=== PATIENT | male | born 1960 | race Caucasian/White ===

== ENCOUNTER 2019-01-24 13:22 | Inpatient (IN) | payer BC, OTHER ==
--- NOTE | 2019-01-24 13:38 | PDOC ---
History of Present Illness - General Chief Complaint: Palpitations Stated Complaint: SENT BY PCP Time Seen by Provider: 01/24/19 13:37 History Source: Patient Exam Limitations: No Limitations - History of Present Illness Initial Comments: 01/24/19 13:48 Zuhair Franco is a 58yM w PMHx HTN and gout presenting w irregular HR. Last night while laying in bed reported new onset jitteriness that kept him up at night. Associated heart racing. Did not take any meds. No chest pain/tightness/SOB. Endorses increased work-related stressors. Went to Dr Bell's office this morning, diagnosed w a fib w RVR, sent here for further management. 1st time diagnosed. Denies fever, headache, nausea/vomiting, AB pain, urinary/bowel mvmt changes, or edema. Facial redness is baseline Dr Nikhil Mccray glove pairer 01/24/19 13:56 Past History - Past Medical History Allergies/Adverse Reactions: Allergies Allergy/AdvReac Type Severity Reaction Status Date / Time khanna Allergy Verified 01/24/19 15:25 CHERRIES Allergy Unknown Uncoded 01/24/19 15:25 Home Medications: Ambulatory Orders Allopurinol [Zyloprim -] 100 mg PO DAILY 01/24/19 Carvedilol [Coreg -] 25 mg PO BID 01/24/19 Lisinopril [Prinivil] 20 mg PO DAILY 01/24/19 [place]-3/Dha/Epa/Fish Oil [Fish Oil 1,000 mg Softgel] 1 each PO DAILY 01/24/19 metFORMIN HCL [Metformin HCl] 500 mg PO BID 01/24/19 COPD: No HTN: Yes - Suicide/Smoking/Psychosocial Hx Smoking Status: No Smoking History: Never smoked Number of Cigarettes Smoked Daily: 0 Hx Alcohol Use: Yes Drug/Substance Use Hx: No Review of Systems - Review of Systems Constitutional: No: Chills, Fever, Weakness HEENTM: No: Eye Pain, Nose Pain, Throat Pain, Mouth Pain Respiratory: No: Cough, Shortness of Breath Cardiac (ROS): Yes: Irregular Heart Rate, Palpitations. No: Chest Pain, Edema, Syncope, Chest Tightness ABD/GI: No: Abdominal Distended, Constipated, Diarrhea, Nausea, Vomiting : No: Burning, Dysuria, Discharge, Flank Pain, Hematuria, Incontinence Musculoskeletal: No: Back Pain, Joint Pain, Muscle Pain, Muscle Weakness Integumentary: No: Bruising, Change in Color, Erythema, Flushing, Lesions Neurological: No: Headache, Numbness, Seizure, Tingling, Tremors Psychiatric: Yes: Stressors. No: Anxiety, Depression Endocrine: No: Excessive Sweating, Flushing, Intolerance to Cold, Intolerance to Heat Hematologic/Lymphatic: No: Anemia, Blood Clots, Easy Bleeding *Physical Exam - Vital Signs Last Vital Signs Temp Pulse Resp BP Pulse Ox 98.3 F 108 H 16 118/91 98 01/24/19 13:28 01/24/19 13:28 01/24/19 13:28 01/24/19 13:28 01/24/19 13:28 - Physical Exam General Appearance: Yes: Nourished, Appropriately Dressed. No: Apparent Distress HEENT: positive: EOMI, KRISTIN, Normal Voice, Hearing Grossly Normal, Other ( facial flushing). negative: Pale Conjunctivae, Scleral Icterus (R), Scleral Icterus (L), Rhinorrhea, Sinus Tenderness Respiratory/Chest: positive: Lungs Clear, Normal Breath Sounds. negative: Chest Tender, Respiratory Distress, Accessory Muscle Use, Crackles, Rales, Rhonchi, Stridor, Wheezing Cardiovascular: positive: S1, S2, Tachycardia, Irregularly Irregular. negative : Edema, Murmur Extremity: positive: Normal Capillary Refill Integumentary: positive: Normal Color Neurologic: positive: Fully Oriented, Alert, Normal Mood/Affect, Normal Response , Responsive. negative: Sensory Deficit, Confused, Disoriented ED Treatment Course - LABORATORY CBC & Chemistry Diagram: 01/24/19 14:22 01/24/19 14:22 Medical Decision Making - Medical Decision Making 01/24/19 13:52 CBC CMP trop TSH CXR EKG EKG shows a fib w RVR, HR 122. HR in 130s Given 10 IV, 30 PO diltiazem w no change in HR. Given another 10 IV diltiazem slowed HR down to 100-110. Given 100 lovenox anticoagulation CXR, CBC, CMP normal, trop negative Zuhair Franco is a 58yM w PMHx HTN and gout presenting w irregular HR due to atrial fibrillation with RVR as shown on EKG. HR in 130s. Given 10 IV, 30 PO diltiazem w no change in HR. Given another 10 IV diltiazem slowed HR down to 100 -110. Also given 100 lovenox for anticoagulation. CXR, CBC, CMP, TSH normal, trop negative Talked to Andre LYNCH, admitted to tele Dr Bell's service for a fib w rvr. Dr Mccray glove pairer consult placed. *DC/Admit/Observation/Transfer Diagnosis at time of Disposition: Atrial fibrillation with RVR - Discharge Dispostion Condition at time of disposition: Improved - Referrals Referrals: Radha Bell MD [Primary Care Provider] - - Patient Instructions - Post Discharge Activity
[2019-01-24] MEDS ORDERED: dilTIAZem HCL 50 MG/10 ML - 10 ML VIAL IVPUSH ONE ×2 (14:06→14:49)
[2019-01-24] MEDS ORDERED: dilTIAZem HCL 30 MG TABLET (FP) PO ONE (14:06)
[2019-01-24] MEDS ORDERED: dilTIAZem HCL 125 MG/25 ML - 25 ML VIAL ONE (14:22)
[2019-01-24 14:41] LABS: BASO % 0.9 % (0-2.0); EOS % 1.6 % (0-4.5); HEMATOCRIT 42.1 % (35.4-49); HEMOGLOBIN 14.1 GM/dL (11.7-16.9); LYMPH % 26.2 % (8-40); MCH 29.3 pg (25.7-33.7); MCHC 33.6 g/dl (32.0-35.9); MEAN CELL VOLUME 87.2 fl (80-96); MEAN PLT VOLUME 7.4 fl (7.5-11.1); MONO % 8.3 % (3.8-10.2); PLATELET COUNT 290 K/MM3 (134-434); RBC 4.83 M/mm3 (4.00-5.60); RDW 13.9 % (11.9-15.9); WHITE BLOOD COUNT 7.1 K/mm3 (4.0-10.0)
--- NOTE | 2019-01-24 14:45 | PDOC ---
Attending Attestation - Resident Resident Name: JabierJerrod - ED Attending Attestation I have performed the following: I have examined & evaluated the patient, The case was reviewed & discussed with the resident, I agree w/resident's findings & plan - HPI HPI: 01/24/19 14:40 58y/o M h/o HTN, borderline high chol sent from Dr. Bell's office for new onset afib with rvr. Pt only developed identifiable sxs today, reporting palpitations but no sob/cp. Over past few days, ? palpitations while at work, but no sob/cp. drinks 1-2 glasses of wine abou 3-4 times per week, no smoking/drugs. no recent travel. 1 cup of coffee daily, no other stimulants. - Physicial Exam PE: 01/24/19 14:43 bp stable, hr 110 - 130, o2 sat normal well appearing, comfortable, speaking full sentences no jvd irregular tachy, no murmur ctab abd benign no edema/calf ttp neuro nl - Critical Care Time Total Critical Care Time: 30 Critical Care Statement: The care of this patient involved high complexity decision making to prevent further life threatening deterioration of the patient 's condition and/or to evaluate & treat vital organ system(s) failure or risk of failure. - Medical Decision Making 01/24/19 14:44 58y/o M with new onset afib, BP stable but with rvr. placed on monitor, ekg performed. IV and oral diltiazem given labs, ekg, cxr takes asa, will begin a/c admit tele Heart Score/ECG Review #1 ECG reviewed & interpreted by me at: 13:26 Compared to previous ECG there are: No significant change (c/w EKG from Dr. Bell office earlier today) 01/24/19 14:45 afib with rvr at 122. LVH. qtc 390. TWI I/AVL
[2019-01-24] MEDS ORDERED: ENOXAPARIN NA (PORCINE) 100 MG/1 ML DISP.SYRIN SQ ONE ×2 (14:50→16:25)
[2019-01-24 15:13] LABS: ALBUMIN 3.8 g/dl (3.4-5.0); BILIRUBIN,TOTAL 0.7 mg/dL (0.2-1); BLOOD UREA NITROGEN 17.4 mg/dL (7-18); CALCIUM 9.5 mg/dL (8.5-10.1); CREATININE 0.9 mg/dL (0.55-1.3); POTASSIUM 4.1 mmol/L (3.5-5.1); TOT PROT 6.8 g/dl (6.4-8.2)
--- NOTE | 2019-01-24 16:53 | HP ---
Admitting History and Physical - Primary Care Physician PCP: Radha Bell - Admission Chief Complaint: Feeling jittery, abnormal EKG History of Present Illness: Patient is a 58 y/o male with past medical history of HTN, borderline high cholesterol and DM. Patient states that last night began feeling jittery and was having difficulty sleeping. Today he went to see PCP and EKG was done which showed Afib with RVR and patient was sent to ER. Patient denies SOB, chest pain, or dizziness. History Source: Patient Limitations to Obtaining History: No Limitations - Past Medical History Cardiovascular: Yes: HTN, Hyperlipdemia Endocrine: Yes: Diabetes Mellitus - Smoking History Smoking history: Never smoked Aproximately how many cigarettes per day: 0 - Alcohol/Substance Use Hx Alcohol Use: Yes History of Substance Use: reports: None - Social History Usual Living Arrangement: Yes: With Spouse ADL: Independent History of Recent Travel: No Home Medications - Allergies Allergies/Adverse Reactions: Allergies Allergy/AdvReac Type Severity Reaction Status Date / Time khanna Allergy Verified 01/24/19 15:25 CHERRIES Allergy Unknown Uncoded 01/24/19 15:25 - Home Medications Home Medications: Ambulatory Orders Allopurinol [Zyloprim -] 100 mg PO DAILY 01/24/19 Carvedilol [Coreg -] 25 mg PO BID 01/24/19 Lisinopril [Prinivil] 20 mg PO DAILY 01/24/19 [place]-3/Dha/Epa/Fish Oil [Fish Oil 1,000 mg Softgel] 1 each PO DAILY 01/24/19 metFORMIN HCL [Metformin HCl] 500 mg PO BID 01/24/19 Review of Systems - Review of Systems Constitutional: reports: No Symptoms Eyes: reports: No Symptoms HENT: reports: No Symptoms Neck: reports: No Symptoms Cardiovascular: reports: No Symptoms Respiratory: reports: No Symptoms Gastrointestinal: reports: No Symptoms Genitourinary: reports: No Symptoms Breasts: reports: No Symptoms Reported Musculoskeletal: reports: No Symptoms Integumentary: reports: No Symptoms Endocrine: reports: No Symptoms Hematology/Lymphatic: reports: No Symptoms Psychiatric: reports: No Symptoms Physical Examination Vital Signs: Vital Signs Temperature 98.3 F 01/24/19 13:28 Pulse Rate 108 H 01/24/19 15:53 Respiratory Rate 18 01/24/19 15:53 Blood Pressure 118/63 01/24/19 15:53 O2 Sat by Pulse Oximetry (%) 99 01/24/19 15:53 Constitutional: Yes: No Distress, Calm Eyes: Yes: Conjunctiva Clear HENT: Yes: Atraumatic Neck: Yes: Supple Cardiovascular: Yes: Tachycardia, Pulse Irregular Respiratory: Yes: Regular, CTA Bilaterally Gastrointestinal: Yes: Normal Bowel Sounds, Soft, Abdomen, Obese Musculoskeletal: Yes: WNL Extremities: Yes: WNL Edema: No Neurological: Yes: Alert, Oriented Psychiatric: Yes: Alert, Oriented Labs: CBC, BMP 01/24/19 14:22 01/24/19 14:22 Imaging - Results Chest X-ray: Report Reviewed Problem List - Problems (1) HTN (hypertension) Assessment/Plan: -Carvedilol, Lisinopril -low Na diet Code(s): I10 - ESSENTIAL (PRIMARY) HYPERTENSION (2) Atrial fibrillation with RVR Assessment/Plan: -received Lovenox 100mg SQ in ER, will continue Loveno daily -tele monitoring -Cardiology consult -Lopressor 5mg IVP q4h prn for HR >110bpm Code(s): I48.91 - UNSPECIFIED ATRIAL FIBRILLATION (3) Diabetes mellitus Assessment/Plan: -BGM ACHS -Metformin -ISS -HgA1c Code(s): E11.9 - TYPE 2 DIABETES MELLITUS WITHOUT COMPLICATIONS (4) HLD (hyperlipidemia) Assessment/Plan: -[place] 3 -lipid panel Code(s): E78.5 - HYPERLIPIDEMIA, UNSPECIFIED Assessment/Plan see problem list dvt ppx
[2019-01-24] MEDS ORDERED: METOPROLOL TARTRATE 5 MG/5 ML VIAL IVPUSH PRN (16:55)
[2019-01-24] MEDS ORDERED: HEPARIN NA (PORCINE) 5,000 UNITS/ML 1ML VIAL IVPUSH PRN ×2 (17:35)
[2019-01-24] MEDS ORDERED: HEPARIN - 25,000 UNIT in SODIUM CHLORIDE 495 ML IV SCH (17:45)
[2019-01-24 21:41] VITALS: BMI 32.2
[2019-01-24] MEDS ORDERED: ENOXAPARIN NA (PORCINE) 100 MG/1 ML DISP.SYRIN SQ SCH (22:00)
[2019-01-24] MEDS: CARVEDILOL 25 MG TABLET (FP) PO SCH (22:30)
[2019-01-25 06:24] LABS: BASO % 0.8 % (0-2.0); EOS % 4.2 % (0-4.5); HEMATOCRIT 42.2 % (35.4-49); HEMOGLOBIN 14.3 GM/dL (11.7-16.9); LYMPH % 30.6 % (8-40); MCH 29.3 pg (25.7-33.7); MCHC 33.8 g/dl (32.0-35.9); MEAN CELL VOLUME 86.8 fl (80-96); MEAN PLT VOLUME 7.8 fl (7.5-11.1); MONO % 9.5 % (3.8-10.2); NEUT % 54.9 % (42.8-82.8); PLATELET COUNT 255 K/MM3 (134-434); RBC 4.86 M/mm3 (4.00-5.60); RDW 13.6 % (11.9-15.9); WHITE BLOOD COUNT 6.3 K/mm3 (4.0-10.0)
[2019-01-25] MEDS ORDERED: metFORMIN HCL 500 MG TABLET (FP) PO SCH (07:00)
[2019-01-25 07:10] LABS: ALBUMIN 3.5 g/dl (3.4-5.0); ALK PHOS 63 U/L (45-117); ANION GAP 9 MMOL/L (8-16); BILIRUBIN,TOTAL 0.8 mg/dL (0.2-1); BLOOD UREA NITROGEN 15.3 mg/dL (7-18); CALCIUM 8.6 mg/dL (8.5-10.1); CHLORIDE 104 mmol/L (98-107); CHOLESTEROL 118 mg/dL (50-200); CO2 28 mmol/L (21-32); CREATININE 0.8 mg/dL (0.55-1.3); GLUCOSE,RANDOM 114 mg/dL (74-106); HDL CHOLESTEROL 36 mg/dL (40-60); MAGNESIUM 1.9 mg/dL (1.8-2.4); PHOSPHOROUS 4.8 mg/dL (2.5-4.9); POTASSIUM 3.8 mmol/L (3.5-5.1); SGOT/AST 16 U/L (15-37); SGPT/ALT 22 U/L (13-61); SODIUM 142 mmol/L (136-145); TOT PROT 6.6 g/dl (6.4-8.2); TRIGLYCERIDES 149 mg/dL (0-150)
--- NOTE | 2019-01-25 08:51 | PN ---
Progress Note, Physician - Current Medication List Current Medications: Active Medications Allopurinol (Zyloprim -) 100 mg PO DAILY [facility] Carvedilol (Coreg -) 25 mg PO BID [facility] Last Admin: 01/24/19 22:30 Dose: 25 mg Enoxaparin Sodium (Lovenox -) 100 mg SQ BID [facility] Last Admin: 01/24/19 22:32 Dose: Not Given Lisinopril (Prinivil) 20 mg PO DAILY [facility] Last Admin: 01/25/19 07:04 Dose: 500 mg Metoprolol Tartrate (Lopressor Injection -) 5 mg IVPUSH Q4H PRN PRN Reason: HYPERTENSION Zac[place]-8-Gjha Ethyl Esters (Lovaza -) 1 gm PO DAILY [facility] - Objective Vital Signs: Vital Signs Temperature 98.6 F 01/25/19 05:00 Pulse Rate 87 01/25/19 05:00 Respiratory Rate 20 01/25/19 05:00 Blood Pressure 142/95 01/25/19 05:00 O2 Sat by Pulse Oximetry (%) 99 01/24/19 21:00 Labs: CBC, BMP 01/25/19 05:16 01/25/19 05:10 Assessment/Plan - Problems (1) HTN (hypertension) Assessment/Plan: -Carvedilol, Lisinopril -low Na diet Code(s): I10 - ESSENTIAL (PRIMARY) HYPERTENSION (2) Atrial fibrillation with RVR Assessment/Plan: -CONVERTED TO SINUS THIS AM received Lovenox 100mg SQ in ER, will CHANGE TO ELIQU -tele monitoring -Cardiology consult -STRESS TEST -Lopressor 5mg IVP q4h prn for HR >110bpm Code(s): I48.91 - UNSPECIFIED ATRIAL FIBRILLATION (3) Diabetes mellitus Assessment/Plan: -BGM ACHS -Metformin -ISS -HgA1c Code(s): E11.9 - TYPE 2 DIABETES MELLITUS WITHOUT COMPLICATIONS (4) HLD (hyperlipidemia) Assessment/Plan: -[place] 3 -lipid panel Code(s): E78.5 - HYPERLIPIDEMIA, UNSPECIFIED
[2019-01-25] MEDS ORDERED: ALLOPURINOL 100 MG TABLET (FP) PO SCH (10:00)
[2019-01-25] MEDS ORDERED: ENOXAPARIN NA (PORCINE) 100 MG/1 ML DISP.SYRIN SQ SCH (10:00)
[2019-01-25] MEDS ORDERED: LISINOPRIL 20 MG TABLET (FP) PO SCH ×2 (10:00→13:42)
[2019-01-25] MEDS ORDERED: OMEGA-3 ACID ETHYL ESTERS (FATTY-ACIDS) 1 GM CAPSULE (FP) PO SCH (10:00)
--- NOTE | 2019-01-25 10:10 | CON.CARD ---
Consult Consult Specialty:: Cardiology Referred by:: Andre WALLACE Reason for Consultation:: Newly diagnosed afib - History of Present Illness Chief Complaint: Palpitations History of Present Illness: Patient is a 58 y/o male with past medical history of HTN heart disease, borderline high cholesterol, obesity and DM last seen by Dr. Mccray 02/02/2018. Patient states that last night began feeling jittery, palpitations and was having difficulty sleeping. He went to see PCP and EKG was done which showed Afib with RVR and patient was sent to ER. Patient denies SOB, chest pain, near or true syncope, orthopnea, PND, LE edema or change in exercise capacity. Spontaneously converted to NSR, underwent stress test and echo. - History Source History Provided By: Patient Limitations to Obtaining History: No Limitations - Past Medical History Cardio/Vascular: Yes: HTN, Hyperlipdemia Endocrine: Yes: Diabetes Mellitus - Alcohol/Substance Use Hx Alcohol Use: Yes History of Substance Use: reports: None - Smoking History Smoking history: Never smoked Have you smoked in the past 12 months: No Aproximately how many cigarettes per day: 0 - Social History ADL: Independent History of Recent Travel: No Home Medications - Allergies Allergies/Adverse Reactions: Allergies Allergy/AdvReac Type Severity Reaction Status Date / Time khanna Allergy Verified 01/24/19 15:25 CHERRIES Allergy Unknown Uncoded 01/24/19 15:25 - Home Medications Home Medications: Ambulatory Orders Allopurinol [Zyloprim -] 100 mg PO DAILY 01/24/19 Carvedilol [Coreg -] 25 mg PO BID 01/24/19 Lisinopril [Prinivil] 20 mg PO DAILY 01/24/19 [place]-3/Dha/Epa/Fish Oil [Fish Oil 1,000 mg Softgel] 2 each PO DAILY 01/24/19 metFORMIN HCL [Metformin HCl] 1,000 mg PO BID 01/24/19 ASA - 81 mg PO DAILY 01/25/19 Review of Systems - Review of Systems Cardiovascular: reports: Palpitations Vital Signs: Vital Signs Temperature 98.6 F 01/25/19 05:00 Pulse Rate 87 01/25/19 05:00 Respiratory Rate 20 01/25/19 05:00 Blood Pressure 142/95 01/25/19 05:00 O2 Sat by Pulse Oximetry (%) 99 01/24/19 21:00 Constitutional: Yes: No Distress, Calm Neck: Yes: Supple Respiratory: Yes: Regular, CTA Bilaterally Gastrointestinal: Yes: Normal Bowel Sounds, Soft Cardiovascular: Yes: Regular Rate and Rhythm JVD: No Carotid Bruit: No Heart Sounds: Yes: S1, S2 Edema: No - Other Data Labs, Other Data: CBC, BMP 01/25/19 05:16 01/25/19 05:10 Troponin, BNP 01/24/19 01/25/19 14:22 05:10 Troponin I < 0.02 < 0.02 Troponin, BNP 01/24/19 01/25/19 14:22 05:10 Troponin I < 0.02 < 0.02 Rapid afib @ 122 PVC ->NSR Echo: Report Reviewed Ejection Fraction %: LVEF > or = 40 % Imaging - Results Chest X-ray: Report Reviewed (NAD) Problem List - Problems (1) Abnormal exercise myocardial perfusion study Code(s): R94.39 - ABNORMAL RESULT OF OTHER CARDIOVASCULAR FUNCTION STUDY (2) Coronary artery disease Code(s): I25.10 - ATHSCL HEART DISEASE OF [place] CORONARY ARTERY W/O ANG PCTRS Qualifiers: Coronary Disease-Associated Artery/Lesion type: [place] artery [place] vs. transplanted heart: [place] heart Associated angina: without angina Qualified Code(s): I25.10 - Atherosclerotic heart disease of [place] coronary artery without angina pectoris (3) Atrial fibrillation with RVR Code(s): I48.91 - UNSPECIFIED ATRIAL FIBRILLATION (4) Diabetes mellitus Code(s): E11.9 - TYPE 2 DIABETES MELLITUS WITHOUT COMPLICATIONS Qualifiers: Diabetes mellitus type: type 2 (5) HLD (hyperlipidemia) Code(s): E78.5 - HYPERLIPIDEMIA, UNSPECIFIED Qualifiers: Hyperlipidemia type: mixed hyperlipidemia Qualified Code(s): E78.2 - Mixed hyperlipidemia (6) HTN (hypertension) Code(s): I10 - ESSENTIAL (PRIMARY) HYPERTENSION Qualifiers: Hypertension type: essential hypertension Qualified Code(s): I10 - Essential (primary) hypertension Assessment/Plan Echo: 01/25/2019 Normal LV size and fxn, mod DEX, mild MR, mild ao root dilatation 4.2 cm 09/2015 Mildly dilated LV with normal systolic fxn, mild cLVH, mild LAE, mild MR and TR, tr-mild WA Nuc Stress: 01/25/2019 9 min 30 swc stage 4 Fabian 11 METS, mod size mild inferior ischemia, mild-mod decreased LVEF 43% 1. Newly diagnosed paroxysmal atrial fibrillation with RVR -> NSR [id number] 2. CAD, abnormal MPI 3. Hypertensive heart disease 4. Type 2 DM 5. Hyperlipidemia 6. Hyperuricemia 7. Diastolic dysfunction 8. Morbid obesity P: 1. Change ASA to Eliquis 5 bid given elevated risk score, continue carvedilol 25 bid, lisinopril 40 qd, Lipitor 40 qd, Lovaza 2 bid 2. Sleep study as outpatient r/o OSAS, defer cardiac catheterization as patient has no ischemic symptoms despite abnormal MPI 3. F/u with Dr. Mccray as outpatient upon d/c 4. Thank you for consultative opportunity
[2019-01-25 10:26] LABS: INR 1.13 (0.83-1.09); PROTHROMBIN TIME (PATIENT) 13.4 SEC (9.7-13.0)
[2019-01-25 10:29] LABS: ACTIVATED PTT 29.4 SECONDS (25.2-36.5)
--- NOTE | 2019-01-25 10:55 | EKG ---
Test Reason : Blood Pressure : / mmHG Vent. Rate : 122 BPM Atrial Rate : 122 BPM P-R Int : 000 ms QRS Dur : 094 ms QT Int : 274 ms P-R-T Axes : 000 -12 140 degrees QTc Int : 390 ms ATRIAL FIBRILLATION WITH RAPID VENTRICULAR RESPONSE WITH PREMATURE VENTRICULAR OR ABERRANTLY CONDUCTED COMPLEXES MINIMAL VOLTAGE CRITERIA FOR LVH, MAY BE NORMAL VARIANT ABNORMAL ECG NO PREVIOUS ECGS AVAILABLE Confirmed by VALORIE OSCAR, AMBAR ([id number]) on 01/25/2019 10:54:57 AM Referred By: Confirmed By:AMBAR EUGENE MD
--- NOTE | 2019-01-25 13:36 | ECHO ---
Name: SUN BYRD Exam:Adult Echocardiogram Study Date: 01/25/2019 09:22 AM Age: 58 yrs Reason For Study: A-Fib Height: 71 in Weight: 231 lb BSA: 2.2 m2 MMode/2D Measurements & Calculations IVSd: 1.4 cm Ao root diam: 4.2 cm LVIDd: 4.8 cm LA dimension: 4.8 cm LVIDs: 2.8 cm LVPWd: 1.2 cm EDV(Teich): 105.0 ml LVOT diam: 2.4 cm ESV(Teich): 29.6 ml LAV (MOD-bp): 115.0 ml Doppler Measurements & Calculations MV E max neymar: 77.6 cm/sec Ao V2 max: 105.9 cm/sec MV A max neymar: 40.7 cm/sec Ao max P.5 mmHg MV E/A: 1.9 AI P1/2t: 796.9 msec MV dec time: 0.18 sec HUNTER(V,D): 2.9 cm2 AI max neymar: 315.6 cm/sec LV V1 max P.9 mmHg AI max P.0 mmHg LV V1 max: 68.4 cm/sec AI dec slope: 116.0 cm/sec2 MR max neymar: 270.1 cm/sec PA V2 max: 92.3 cm/sec MR max P.2 mmHg PA max P.4 mmHg Med Peak E' Neymar: 8.2 cm/sec PI Vmax: 120.8 cm/sec Med E/e': 9.5 Lat Peak E' Neymar: 15.1 cm/sec Lat E/e': 5.1 Procedure A two-dimensional transthoracic echocardiogram with color flow and Doppler was performed. Left Ventricle The left ventricular size, thickness and function are normal. The left ventricular ejection fraction is normal. Left Ventricular Filling pattern is normal for age. The left ventricular wall motion is kathryn l. Right Ventricle The right ventricle is normal in size and function. Atria The left atrium is moderately dilated. The right atrium is moderately dilated. Mitral Valve There is mild mitral valve thickening. There is no mitral valve stenosis. There is mild mitral regurg itation. Aortic Valve The aortic valve is normal in structure and function. No hemodynamically significant valvular aortic stenosis. Trace aortic regurgitation. Pulmonic Valve The pulmonic valve is not well visualized. There is no pulmonic valvular stenosis. Mild pulmonic valv ular regurgitation. Great Vessels Mild aortic root dilatation. Pericardium/Pleura There is no pericardial effusion. Interpretation Summary The left atrium is moderately dilated. The right atrium is moderately dilated. Mild aortic root dilatation. The left ventricular size, thickness and function are normal The left ventricular ejection fraction is normal. The left ventricular wall motion is normal. There is mild mitral regurgitation. Trace aortic regurgitation. Left Ventricular Filling pattern is normal for age. MD Ad Tam 01/25/2019 01:35 PM
[2019-01-25] MEDS ORDERED: APIXABAN 5 MG TABLET PO SCH ×2 (13:43→22:00)
[2019-01-25] MEDS: CARVEDILOL 25 MG TABLET (FP) PO SCH (13:51)
--- NOTE | 2019-01-25 14:58 | DS ---
Physical Examination Vital Signs: Vital Signs Temperature 98 F 01/25/19 08:00 Pulse Rate 108 H 01/25/19 08:00 Respiratory Rate 18 01/25/19 08:00 Blood Pressure 116/84 01/25/19 08:00 O2 Sat by Pulse Oximetry (%) 99 01/24/19 21:00 Labs: CBC, BMP 01/25/19 05:16 01/25/19 05:10 Discharge Summary Reason For Visit: AFIB Current Active Problems Abnormal exercise myocardial perfusion study (Acute) Atrial fibrillation with RVR (Acute) Coronary artery disease (Acute) Diabetes mellitus (Acute) HLD (hyperlipidemia) (Acute) HTN (hypertension) (Acute) Condition: Improved - Instructions Referrals: Radha Bell MD [Primary Care Provider] - 1 Week Disposition: HOME - Home Medications Comprehensive Discharge Medication List: Ambulatory Orders Allopurinol [Zyloprim -] 100 mg PO DAILY 01/24/19 Carvedilol [Coreg -] 25 mg PO BID 01/24/19 Lisinopril [Prinivil] 20 mg PO DAILY 01/24/19 [place]-3/Dha/Epa/Fish Oil [Fish Oil 1,000 mg Softgel] 2 each PO DAILY 01/24/19 metFORMIN HCL [Metformin HCl] 1,000 mg PO BID 01/24/19 ASA - 81 mg PO DAILY 01/25/19 Apixaban [Eliquis -] 5 mg PO BID #60 tablet 01/25/19 Atorvastatin Ca [Lipitor] 40 mg PO HS #0 tablet 01/25/19
[2019-01-25 15:04] VITALS: BP 129/72; PULSE 81; TEMP 98.3
[2019-01-25] MEDS ORDERED: ATORVASTATIN CA 20 MG TABLET (FP) PO SCH (22:00)
== END 2019-01-25 15:21 | disposition home or self-care (01) | DRG 310 ==
LOC: JER 13:22 → JERBED 14:52 → J4W 18:14
PROVIDERS: ADMIT Family Medicine; ATTEND Family Medicine
DX: I48.0 Paroxysmal atrial fibrillation (principal); E78.00 Pure hypercholesterolemia, unspecified; E11.9 Type 2 diabetes mellitus without complications; I25.10 Atherosclerotic heart disease of native coronary artery without angina pectoris; R94.39 Abnormal result of other cardiovascular function study; E66.8 Other obesity; Z68.32 Body mass index [BMI] 32.0-32.9, adult; I11.9 Hypertensive heart disease without heart failure
CPT/HCPCS: 36415; 71045-TC-FY; 78452-TC; 80053; 80061; 82550; 82962; 83036; 83721; 83735; 84100; 84436; 84443; 84484; 85025; 85379; 85610; 85730; 93005; 93010; 93017; 93306-TC; 99285-25; A9502

== ENCOUNTER 2020-08-05 05:42 | Day surgery (SDC) | payer BC ==
[2020-08-02 16:02] VITALS: BMI 31.4
[2020-08-05 11:56] VITALS: TEMP 98.6
[2020-08-05 14:34] VITALS: BP 121/71; PULSE 62
== END 2020-08-05 14:25 | disposition home or self-care (01) ==
LOC: JASU-ENDO 05:42
PROVIDERS: ATTEND Internal Medicine Cardiovascular Disease
PROC: 5A2204Z Restoration of Cardiac Rhythm, Single (ICD-10-PCS; principal; 2020-08-05 12:00)
DX: I48.91 Unspecified atrial fibrillation (principal); I11.9 Hypertensive heart disease without heart failure
CPT/HCPCS: 82962; 92960; 93005; 93010

== ENCOUNTER 2021-08-18 04:51 | Day surgery (SDC) | payer BC ==
[2021-08-14 12:26] VITALS: BMI 32.1
[2021-08-18 09:26] VITALS: TEMP 97.5
[2021-08-18 10:00] VITALS: PULSE 50
[2021-08-18 12:41] VITALS: BP 108/61
== END 2021-08-18 10:49 | disposition home or self-care (01) ==
LOC: JASU-ENDO 04:51
PROVIDERS: ATTEND Internal Medicine Cardiovascular Disease
PROC: 5A2204Z Restoration of Cardiac Rhythm, Single (ICD-10-PCS; principal; 2021-08-18 08:30)
DX: I48.91 Unspecified atrial fibrillation (principal)
CPT/HCPCS: 82962; 92960